=== PATIENT | male | born 1975 | race African-American/Black ===

== ENCOUNTER 2016-10-06 05:07 | Emergency (ER) | payer BC, MEDICAID, OTHER ==
[~2016-10-06] VITALS: Ht 188 cm; Wt 104.0 kg
[~2016-10-06 05:07] MED LIST: ALBU6.7H INH; CYCL-36 PO; DICL50 PO; DUONI NEB; LORTA5 PO; PRED50 PO
[2016-10-06 05:09] VITALS: BP 134/76; PULSE 65; RESP 16; TEMP 97.9; O2SAT 97
--- NOTE | 2016-10-06 05:19 | PD ---
HPI Chief Complaint: ENT Complaint Time Seen by Provider: 05:12 Travel History International Travel<30 days: No Contact w/Intl Traveler<30days: No Traveled to known affect area: No History of Present Illness HPI 40-year-old male presents for evaluation of sore throat. Symptoms started yesterday. It hurts to swallow. No alleviating factors. He denies cough, congestion, fevers or chills, rash or recent travel. No sick contacts. No associated symptoms. No other complaints at this time. PFSH Past Medical History Asthma: Yes (SEASONAL) Diabetes: Yes Diminished Hearing: No Past Surgical History Abdominal Surgery: Yes (heria repair) Social History Alcohol Use: Yes (1 drink a month) Tobacco Use: No Substance Use: No Allergies-Medications (Allergen,Severity, Reaction): Coded Allergies: No Known Allergies (Verified , 10/06/16) Reported Meds & Prescriptions Reported Meds & Active Scripts Active Resp: Albuterol/Ipratropium 2.5 Mg/0.5 Mg (Albuterol/Ipratropium) 1 Amp Nebu 1 Amp NEB Q6H PRN Deltasone 50 Mg Tab (Prednisone) 50 Mg Tab 50 Mg PO DAILY 5 Days Hydrocodone/Acetaminophen 5 mg/325 mg Acetaminophen 325/5 Hydrocodone Tab 1 Tab PO Q4-6H Proventil Hfa (Albuterol Sulfate) 6.7 Gm Aero 2 Puff INH Q6HPRN Review of Systems General / Constitutional: No: Fever, Chills HENT: Positive: Sore Throat Respiratory: No: Cough, Shortness of Breath, Wheezing Physical Exam Narrative GENERAL: Well-developed well-nourished male in no acute distress SKIN: Warm and dry. HEAD: Atraumatic. Normocephalic. EYES: Pupils equal and round. No scleral icterus. No injection or drainage. ENT: No nasal bleeding or discharge. Mucous membranes pink and moist. No oral pharyngeal erythema or exudate. NECK: Trachea midline. No JVD. No lymphadenopathy. Neck supple full range of motion. CARDIOVASCULAR: Regular rate and rhythm. No murmur appreciated. RESPIRATORY: No accessory muscle use. Clear to auscultation. Breath sounds equal bilaterally. Data Data Last Documented VS Vital Signs Date Time Temp Pulse Resp B/P Pulse Ox O2 Delivery O2 Flow Rate FiO2 10/06/16 05:09 97.9 65 16 134/76 97 Orders Group A Rapid Strep Screen (10/06/16 05:16) Acetaminophen (Tylenol) (10/06/16 06:00) MDM Medical Decision Making Medical Screen Exam Complete: Yes Emergency Medical Condition: Yes Medical Record Reviewed: Yes Differential Diagnosis Pharyngitis, tonsillitis, peritonsillar abscess, infectious mononucleosis, herpangina, epiglottitis Narrative Course 40-year-old male with 1 day history of sore throat. Examination is benign. Rapid strep screen was performed and is negative. He appears to have a viral pharyngitis. He is stable for discharge. Diagnosis Primary Impression: Pharyngitis Qualified Code: J02.9 - Pharyngitis, unspecified etiology Additional Instructions: Stay well-hydrated and well-nourished. Take [id number] Tylenol or Motrin as needed for discomfort per dosing instructions on the bottle. Return for any emergent medical conditions. Med/Other Pt SpecificInfo: No Change to Meds Disposition: 01 DISCHARGE HOME Condition: Stable Osei Castro Oct 06, 2016 05:19
[2016-10-06] MEDS ORDERED: ACETAMINOPHEN 325 MG TAB PO ONE (06:00)
== END 2016-10-06 06:17 | disposition home or self-care (01) ==
LOC: NETRI 05:07
DX: J02.9 Acute pharyngitis, unspecified (principal)
CPT/HCPCS: 87081; 87880; 99282

== ENCOUNTER 2017-07-18 01:13 | Emergency (ER) | payer OTHER ==
[~2017-07-18] VITALS: Ht 188 cm; Wt 100.0 kg
[~2017-07-18 01:13] MED LIST changes: -CYCL-36 PO; -DICL50 PO
[2017-07-18 01:14] VITALS: BP 131/73; PULSE 83; RESP 16; TEMP 99.2; O2SAT 96
[2017-07-18] MEDS ORDERED: LISI-519 PO (01:42)
[2017-07-18] MEDS ORDERED: METF500T PO (01:42)
[2017-07-18] MEDS ORDERED: ALBUAER3 INH (01:43)
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
== END 2017-07-18 02:18 | disposition left against medical advice (07) ==
LOC: NEPD 01:13
DX: T23.051A Burn of unspecified degree of right palm, initial encounter (principal); X08.8XXA Exposure to other specified smoke, fire and flames, initial encounter; Z72.0 Tobacco use
CPT/HCPCS: 99281